=== PATIENT | female | born 1985 | race Caucasian/White ===

== ENCOUNTER → 2020-11-11 | Outpatient (CLI) | payer BC, OTHER ==
[~2020-11-11] VITALS: Ht 177.8 cm; Wt 52.2 kg
[~2020-11-11] MED LIST: BENADRYL25 MG PO; BENTYL 10 MG CA10 MG PO; DILAUDID4 MG PO; ERYTHROMYCIN333 MG PO; LORAZEPAM 1 MG T1 MG PO; MELATONIN5 M6 PO; MULTI VITAMIN1 EACH PO; NEURONTIN300 MG PO; PHENERGAN 25 MG25 M1 PO; PROAIR HFA8.5 GM INH; VSL#3 CAPSULE1 EACH PO; ZOFRAN4 MG PO; ZZZQUIL50 MG/301 PO
--- NOTE | ~2020-11-11 | HPC ---
[facility] [place] [address] PAIN MANAGEMENT CONSULTATION Name: DOMINGA MIGUEL Room #: REG ISI PlascenciaBrian#: [id number] Admission: 11/11/20 Attend Phys: Feliz Hammond DO Discharge: Date of : 85 Report #: [id number] THIS REPORT FOR: cc: Humble Acevedo,Humble Omalley,Feliz Crabtree DO ~ cc: Humble Acevedo MD DATE OF SERVICE: 11/11/2020 REFERRING PHYSICIAN: Dr. Humble Acevedo. CHIEF COMPLAINT: Neck pain, bilateral upper back pain, left upper extremity pain with paresthesias. HISTORY OF PRESENT ILLNESS: As you know, the patient is a 35-year-old female reporting acute onset of neck pain, bilateral upper back pain, left upper extremity pain that presented on 07/23/2020. The patient denies specific injury or trauma. She has undergone epidural injections x 2 with a different pain service, but did not notice much in the way of benefit. The symptoms reportedly started in the patient's hand and radiated towards the cervical area. She has a neurosurgery consultation scheduled, but has not undergone that neurosurgery eval. The fact that the patient saw no improvement in symptoms with epidural injections would indicate that the pathology the patient experiences is not conducive to treatment with steroids. The patient returned to see her primary care physician who referred the patient on to our clinic to discuss whether or not other treatment options may exist to help with pain. The patient reports today her pain is continuous and intermittent. She describes the pain as crushing, pulling, sharp and stabbing with intermittent numbness and tingling. Places current pain score 3/10 with medication. Daily average of 6/10 to 8-9/10 without medication. She states pain is exacerbated with heat, sitting at her desk in everyday task, improves with pain medications and ice packs. She has also noted some improvement in symptoms with physical therapy. She has been referred to our service to discuss treatment options to address suspected cervical radiculopathy, chronic neck pain and left upper extremity pain with paresthesias. PAST MEDICAL HISTORY: 1. Anemia. 2. Asthma. 3. Chronic kidney disease. 4. Stomach problems. 5. Emotional problems. 6. Polycystic kidney disease. 7. Hypercholesterolemia. 8. Gastroparesis. [address] [address] PAIN MANAGEMENT CONSULTATION Name: [facility] Room #: AMINATA ISI Hinojosa#: [id number] Admission: 11/11/20 Attend Phys: Feliz Hammond DO Discharge: Date of : 85 Report #: [id number] PAST SURGICAL HISTORY: 1. Tonsillectomy. 2. Myringotomy tubes. 3. Tubal ligation. 4. Cholecystectomy. 5. Biceps surgery. 6. Lymph node biopsy. SOCIAL HISTORY: The patient reports she is a nonsmoker. Denies IV or illicit drug use. Admits to occasional alcohol beverage. She is employed as a lead programmer analyst, but only when she is able to work based on her pain levels. She is not receiving workmen's compensation nor is she trying to obtain disability benefits. Not in litigation in regards to pain. She is accompanied by a family member present in room today. REVIEW OF SYSTEMS: Positive for weight gain, decrease in appetite, fatigue and weakness, frequent and recurrent headaches, wearing corrective eyewear, loss of appetite, changes in bowel movements, nausea and vomiting, abdominal pain, nocturia, kidney stones, irregular menses, frequent and recurrent headaches, numbness and tingling sensations, nervousness, insomnia, bleeding and bruising tendencies and enlarged glands. All other review of systems negative per 12-point review of systems other than those listed in history of present illness. PAIN IMPACT SCORE: 32/70, moderate interference of daily activities secondary to pain. ALLERGIES: AUGMENTIN, CEFUROXIME, CEFDINIR. CURRENT MEDICATIONS: None reported. IMAGING: No imaging provided. PHYSICAL EXAMINATION: VITAL SIGNS: Blood pressure 127/87, pulse 81, respiratory rate 14 and unlabored. The patient 100% on room air. Height 5 feet 10 inches tall, weight 115 pounds, BMI calculated 16.5. GENERAL: Well-developed, well-nourished, well-hydrated, thin 35-year-old female, appearing stated age, pain is rated today 4/10. HEENT: Normocephalic, atraumatic. Pupils equal, round and responsive to light. Extraocular muscles are intact. Speech is fluent. She is wearing a mask in compliance with COVID-19 regulations. LUNGS: Clear, no wheeze, rhonchi or rales. CARDIOVASCULAR: Regular. No appreciable gallop, no rub. ABDOMEN: Soft. [address] [address] PAIN MANAGEMENT CONSULTATION Name: DOMINGA MIGUEL Room #: AMINATA Hinojosa#: [id number] Admission: 11/11/20 Attend Phys: Feliz E. Manish, DO Discharge: Date of : 85 Report #: [id number] EXTREMITIES: Show no clubbing, no cyanosis and no edema. MUSCULOSKELETAL: Upper extremity strength equal and symmetrical 5/5. Muscle bulk and tone equal and symmetrical in upper extremities. She is intact to light touch from C5 through T1 dermatomes and again from T1 through T12 dermatomes. Muscle bulk and tone is equal in upper extremities. Deep tendon reflexes are 2+/4 at biceps, brachioradialis, and triceps. Palpatory tenderness is noted over the paraspinal musculature of the cervical spine. No spinous process tenderness. Spurling's test is negative. ASSESSMENT: 1. Chronic neck pain. 2. Possible cervical radiculopathy. 3. Neuropathic pain. 4. Chronic intractable pain. PLAN: 1. Based on today's physical exam and history the patient has provided, the description the patient uses in regards to pain as well as location of symptoms, it would appear she is suffering from a combination of possible cervical radiculopathy and myofascial symptoms. We discussed with the patient that the treatment options we have available for these issues are as follows: We did not have any imaging for us to review with the patient today, though we have recommended that if she has had some imaging, she obtain this and bring that to us as early as possible. Following was discussed with the treatment options. We discussed physical therapy, stretching exercise, core strengthening and traction techniques as a treatment course. We discussed medication management with adjustments in medication to address neuropathic symptoms such as amitriptyline, nortriptyline, Cymbalta, Lyrica or gabapentin. We discussed cervical epidural injections under fluoroscopic guidance to address cervical radiculopathy. We discussed further evaluation with EMG of the upper extremities to confirm whether or not cervical radicular symptoms are present and we also discussed surgical options if pathology is present that would be amenable. After reviewing risks and benefits of all proposed treatment options, the patient chose to make adjustments in medication management. 2. The patient will be started on gabapentin 300 mg dose with a rapid titration. I have given the patient a prescription of 300 mg tablets to begin 1 tab p.o. at bedtime for 3 nights increasing up to 900 mg 3 times a day. She will escalate dose every 3 days by 300 mg, initially escalating doses to 900 mg p.o. at bedtime. If no improvement in symptoms, no side effects of sleepiness, disorientation, confusion, mental slowing, then increase to 900 mg in morning and 900 mg at night based on the titration schedule. If again no improvement in symptoms, no side effects, then continue the titration as directed. A prescription of #180 tablets was sent to the patient's local pharmacy. 3. We did discuss today opioid medication management. We are not taking on any opioid medication patients at this time. She will need to remain on the [address] [address] PAIN MANAGEMENT CONSULTATION Name: DOMINGA MIGUEL Room #: REG ISI Hinojosa#: [id number] Admission: 11/11/20 Attend Phys: Feliz Hammond DO Discharge: Date of : 85 Report #: [id number] medications she is receiving from the prescribing physician if she wishes to continue this treatment course. We do not at this juncture feel that a long-term opioid medication management would be appropriate given this patient's physical exam and history. 4. We plan to see the patient back in followup visit for possible interventional treatments on an as needed basis. She was started on gabapentin. If this is effective, she can continue the medications through her PCP or can return to our clinic for refill of that medication. 5. We wish to thank Dr. Acevedo for the referral of the patient to our clinic. We will keep you apprised of her response to treatment as we address suspected cervical radiculopathy and myofascial pain. Again, we wish to thank you for the opportunity to see the patient in consultation. By: [id number] Feliz Hammond DO /nt
[2020-11-11 09:02] VITALS: BP 127/87
--- NOTE | 2020-11-11 09:10 | NUR ---
Pain Clinic Assessment: 1. History of Osteoarthritis: Not Applicable History of Rheumatoid Arthritis: Not Applicable 2. Height: 5 ft. 10 in. 177.8 cm. Weight: 115.0 lb. oz. 52.164 kg. Patient's BMI: 16.5 3. Vital Signs: BP: 127/87 Pulse: 81 Resp: 14 Temp: 02 Sat: 100 ECG Mon: 4. Pain Intensity: 4 5. Fall Risk: Dizziness: N Needs help standing or walking: N Fallen in the last 3 months: N Fall risk comments: 6. Patient on Blood Thinner: None 7. History of Hypertension: N 8. Opioid Therapy greater than 6 weeks: Opiate Contract Signed: 9. Risk Assessment Tool Provided: 2 LOW RISK 10. Functional Assessment Tool: 11. Recreational Drug Use: Current within past 3 mos Drug Type: MARIJUANA Tobacco Use: Former Smoker Tobacco Type: Amount or Packs/day: How Many Years: Alcohol Use: Yes Frequency: Special Occasions Quant:
== END ==
LOC: PAIN 07:01
PROVIDERS: ATTEND Anesthesiology Pain Medicine
DX: G89.29 Other chronic pain (principal); M54.12 Radiculopathy, cervical region; M54.5 Low back pain; M79.602 Pain in left arm; N18.9 Chronic kidney disease, unspecified; Z90.49 Acquired absence of other specified parts of digestive tract; Z98.890 Other specified postprocedural states